=== PATIENT | male | born 1985 | race Hispanic/Latino ===

== ENCOUNTER 2017-03-14 05:36 | Observation (INO) | payer BC ==
[2017-03-14] MEDS ORDERED: Sodium Chloride 0.9% 1,000 ML IV STA (06:01)
[2017-03-14] MEDS ORDERED: Iohexol 240 (50 ml) PO ONE ×2 (06:07→07:07)
--- NOTE | 2017-03-14 06:17 | ED PDOC ---
HPI: Abdomen Time Seen by Provider: 03/14/17 06:00 Chief Complaint (Nursing): Abdominal Pain Chief Complaint (Provider): Abdominal Pain History Per: Patient History/Exam Limitations: no limitations Onset/Duration Of Symptoms: Hrs Outside of [place] travel?: No Current Symptoms Are (Timing): Constant Severity: Severe Pain Scale Rating Of: 10 Location Of Pain/Discomfort: LLQ Quality Of Discomfort: Sharp, Stabbing Associated Symptoms: Nausea, Vomiting. denies: Fever Exacerbating Factors: Supine Alleviating Factors: denies: Rest Additional Complaint(s): 31 y/o male patient presenting to the ED with acute abdominal pain. PT reports nausea, vomiting (multiple violent episodes), and that the pain worsened when sleep. Pt states the pain is radiating to his back. PT rates the pain a 10/10 and describes it as a "constant stabbing". PT denies any past medical history other then a shoulder repair surgery due to a traumatic injury. Past Medical History Reviewed: Historical Data, Nursing Documentation, Vital Signs Vital Signs: Last Vital Signs Temp 98.4 F 03/14/17 13:23 Pulse 72 03/14/17 13:23 Resp 18 03/14/17 13:23 BP 133/84 03/14/17 13:23 Pulse Ox 95 03/14/17 13:23 - Medical History PMH: No Chronic Diseases - Surgical History Other surgeries: Surgery for shoulder to repair traumatic injury. - Family History Family History: States: Unknown Family Hx - Social History Current smoker - smoking cessation education provided: No Alcohol: None Drugs: Denies - Home Medications Home Medications: Ambulatory Orders Medication Instructions Recorded Naproxen [Naprosyn] 500 mg PO BID PRN #14 tablet 03/14/17 oxyCODONE/Acetaminophen [Percocet 1 ea PO Q6 PRN #8 tab 03/14/17 5/325 mg Tab] - Allergies Allergies/Adverse Reactions: Allergies Allergy/AdvReac Type Severity Reaction Status Date / Time No Known Allergies Allergy Verified 03/14/17 05:42 Review of Systems ROS Statement: Except As Marked, All Systems Reviewed And Found Negative Cardiovascular: Negative for: Chest Pain Gastrointestinal: Positive for: Nausea, Vomiting ((+)Multiple Episodes), Abdominal Pain Physical Exam - Reviewed Nursing Documentation Reviewed: Yes Vital Signs Reviewed: Yes - Physical Exam Appears: Positive for: Non-toxic, Uncomfortable Skin: Positive for: Normal Color, Warm, Dry Neck: Positive for: Normal, Painless ROM, Supple Cardiovascular/Chest: Positive for: Regular Rate, Rhythm. Negative for: Murmur Respiratory: Positive for: Normal Breath Sounds. Negative for: Respiratory Distress Gastrointestinal/Abdominal: Positive for: Tenderness ((+)LLQ) Back: Positive for: Other ((+)Pain Radiating to the flank) Neurologic/Psych: Positive for: Alert, Oriented. Negative for: Motor/Sensory Deficits - Laboratory Results Result Diagrams: 03/14/17 06:14 03/14/17 06:14 - ECG O2 Sat by Pulse Oximetry: 97 (RA) Pulse Ox Interpretation: Normal Medical Decision Making Medical Decision Making: Time: 0600 Initial impression: Abdominal Pain, LLQ Tenderness. Initial plan: --ABD PELVIS --ELECTROCARDIOGRAM --CMP --LIPASE --ED URINE DIPSTICK --EKG-ED --CBC --FAMOTIDINE --IOHEXOL --KETOROLAC --SODIUM CHLORIDE --ONDANSETRON --HEPLOCK INSERTION --URINALYSIS 0700: Patient signed out to Dr. Bhatia at this time. Pending CT Scan. Scribe Attestation: Documented by Giovanna Trejo, acting as a scribe for Agustin Acosta MD. Scribe Attestation: All medical record entries made by the Scribe were at my direction and personally dictated by me. I have reviewed the chart and agree that the record accurately reflects my personal performance of the history, physical exam, medical decision making, and the department course for this patient. I have also personally directed, reviewed, and agree with the discharge instructions and disposition. ED OBSERVATION Date of observation admission: 03/14/17 Time of observation admission: 06:35 - Observation admission statement Patient is being placed in observation because:: Further workup of abdominal pain and pending CT. - Goals of Observation Goals of observation are:: Further workup of abdominal pain and pending CT. Disposition - Clinical Impression Clinical Impression: Renal colic - Disposition Disposition: Transfer of Care Disposition Time: 07:00 Condition: STABLE
[2017-03-14 06:21] LABS: BASO # 0.1 K/uL (0.0-0.2); BASO % 0.9 % (0.0-2.0); EOS # 0.1 K/uL (0.0-0.7); EOS % 0.9 % (0.0-4.0); HEMOGLOBIN 16.4 g/dL (12.0-18.0); LYMPH % 19.8 % (20.0-40.0); MEAN CELL VOLUME 88.3 fl (80.0-94.0); MEAN CORPUSCULAR HEMOGLOBIN 30.4 pg (27.0-31.0); MEAN CORPUSCULAR HGB CONC 34.4 g/dL (33.0-37.0); MEAN PLATELET VOLUME 7.3 fl (7.2-11.7); MONO # 0.6 K/uL (0.0-0.8); NEUT # 7.4 K/uL (1.8-7.0); NEUT % 72.4 % (50.0-75.0); NRBC % 0.1 % (0.0-0.0); RBC 5.39 Mil/uL (4.40-5.90); RED CELL DISTRIBUTION WIDTH 12.3 % (11.5-14.5); WHITE BLOOD COUNT 10.2 K/uL (4.8-10.8)
[2017-03-14 06:39] LABS: ALB/GLOB RATIO 1.5 (1.0-2.1); ALBUMIN 4.7 g/dL (3.5-5.0); ALT/SGPT 81 U/L (21-72); AST/SGOT 37 U/L (17-59); BLOOD UREA NITROGEN 17 mg/dl (9-20); CALCIUM 9.8 mg/dL (8.4-10.2); GFR AFRICAN-AMERICAN > 60; GFR NON-AFRICAN AMERICAN > 60; LIPASE 115 U/L (23-300)
[2017-03-14 07:40] VITALS: RESP 18
[2017-03-14 07:48] LABS: URINE BACTERIA RARE (<OCC); URINE BILIRUBIN NEGATIVE (NEGATIVE); URINE BLOOD SMALL (NEGATIVE); URINE CLARITY CLEAR (Clear); URINE COLOR YELLOW (YELLOW); URINE GLUCOSE (UA) NEG (Normal); URINE HYALINE CAST 0-2 /hpf (0-2); URINE LEUKOCYTE ESTERASE NEG Leu/uL (Negative); URINE NITRATE NEGATIVE (NEGATIVE); URINE PROTEIN NEGATIVE (NEGATIVE); URINE UROBILINOGEN 0.2-1.0 mg/dL (0.2-1.0)
--- NOTE | 2017-03-14 10:03 | CARD ---
APPROVED REPORT EKG Measurement Heart [id number] <Conclusion> Normal sinus rhythm Normal ECG
--- NOTE | 2017-03-14 10:58 | CT ---
PROCEDURE: CT abdomen pelvis dated 03/14/2017 HISTORY: LLQ and L flank pain COMPARISON: None. TECHNIQUE: Contiguous axial images of the abdomen and pelvis. Oral contrast was administered. No IV contrast given. Coronal and Sagittal reformats generated. Radiation dose: Total exam DLP = 1200.28 mGy-cm. This CT exam was performed using one or more of the following dose reduction techniques: Automated exposure control, adjustment of the mA and/or kV according to patient size, and/or use of iterative reconstruction technique. FINDINGS: LOWER THORAX: Mild atelectasis and or scarring changes in the left lung base. No infiltrate effusion or basilar pneumothorax. Tiny hiatal hernia with slight wall thickening of the distal esophagus likely due to protrusion of gastric mucosa. Possibility of esophagitis not completely excluded. Heart size normal. No significant pericardial effusion. LIVER: Liver is mildly enlarged measuring just over 19 cm in CC dimension. No obvious hepatic mass collection or calcification. Mild fatty hepatic infiltration. GALLBLADDER AND BILE DUCTS: Gallbladder is physiologically distended. No evidence of intraluminal gallbladder calculi. PANCREAS: The unenhanced pancreas appears slightly atrophic and fatty replaced. No evidence of pancreatic mass collection or calcification. SPLEEN: Spleen is enlarged measuring approximately 15.5 cm in AP dimension. No obvious splenic mass collection or calcification. Probable tiny splenule adjacent to the anterior inferior margin of the ADRENALS: No adrenal lesions. KIDNEYS AND URETERS: Kidneys exhibit symmetric size. There are some vague infiltration changes seen in the left perinephric fat. No renal calculi are identified. There is a tiny approximately 2 mm calcification in the left aspect of the pelvis is dorsal and adjacent to the left posterolateral margin of the urinary bladder. This could be a tiny calculus within the distal left ureter. Minimal prominence of a short segment of the mid to distal left ureter BLADDER: The liver is incompletely distended which may account for slight thick-walled appearance. Possibility of cystitis not excluded. REPRODUCTIVE: Prostate gland measures approximately 3.8 cm in transverse dimension. Few small prostatic calcifications are present. APPENDIX: Normal-appearing appendix of best seen on axial image number [id number]. No periappendiceal inflammatory changes. BOWEL: Evaluation of the bowel is limited due to incomplete opacification. The stomach is incompletely distended which may account for slight thick-walled appearance. Visualized loops of small bowel exhibit relatively normal contour and caliber. No evidence of acute mechanical small bowel obstruction. There is moderate amount of stool is seen within the cecum ascending and transverse colon suggesting mild fecal retention. No definitive evidence of mural wall thickening. PERITONEUM: Unremarkable. No fluid collection. No free air. LYMPH NODES: No significant bulky adenopathy lymph nodes. VASCULATURE: Unremarkable. No aortic aneurysm. BONES: Osseous structures appear grossly intact. Mild degenerative spondylosis L5-S1 level and to a much less so the remaining levels. OTHER FINDINGS: None. IMPRESSION: Tiny 2 mm calcification left aspect of the pelvis could be within the distal ureter. There is minimal prominence of of a short segment of the mid to distal left ureter. . Vague infiltration changes seen in the left perinephric fat. Correlation with urinalysis recommended. Mild hepatosplenomegaly. No evidence of acute appendicitis. Note that dense case was discussed with Dr. Bhatia at approximately 10:30 p.m. with written down and read back verification.
[2017-03-14] MEDS ORDERED: Oxycodone/Acetaminophen 5/325 mg Tab PO STA (11:16)
[2017-03-14] MEDS ORDERED: Oxycodone/Acetaminophen 5/325 mg Tab ONE (11:50)
--- NOTE | 2017-03-14 13:12 | ED PDOC ---
- Laboratory Results Result Diagrams: 03/14/17 06:14 03/14/17 06:14 - ECG O2 Sat by Pulse Oximetry: 95 Medical Decision Making Medical Decision Makin:00 Patient was signed out to be by Agustin Acosta MD pending CT, reevaluation and final disposition 09:00 Upon reevaluation, patient is continuing to have discomfort. More pain medication was ordered. 09:35 CT abd FINDINGS: LOWER THORAX: Mild atelectasis and or scarring changes in the left lung base. No infiltrate effusion or basilar pneumothorax. Tiny hiatal hernia with slight wall thickening of the distal esophagus likely due to protrusion of gastric mucosa. Possibility of esophagitis not completely excluded. Heart size normal. No significant pericardial effusion. LIVER: Liver is mildly enlarged measuring just over 19 cm in CC dimension. No obvious hepatic mass collection or calcification. Mild fatty hepatic infiltration. GALLBLADDER AND BILE DUCTS: Gallbladder is physiologically distended. No evidence of intraluminal gallbladder calculi. PANCREAS: The unenhanced pancreas appears slightly atrophic and fatty replaced. No evidence of pancreatic mass collection or calcification. SPLEEN: Spleen is enlarged measuring approximately 15.5 cm in AP dimension. No obvious splenic mass collection or calcification. Probable tiny splenule adjacent to the anterior inferior margin of the ADRENALS: No adrenal lesions. KIDNEYS AND URETERS: Kidneys exhibit symmetric size. There are some vague infiltration changes seen in the left perinephric fat. No renal calculi are identified. There is a tiny approximately 2 mm calcification in the left aspect of the pelvis is dorsal and adjacent to the left posterolateral margin of the urinary bladder. This could be a tiny calculus within the distal left ureter. Minimal prominence of a short segment of the mid to distal left ureter BLADDER: The liver is incompletely distended which may account for slight thick-walled appearance. Possibility of cystitis not excluded. REPRODUCTIVE: Prostate gland measures approximately 3.8 cm in transverse dimension. Few small prostatic calcifications are present. APPENDIX: Normal-appearing appendix of best seen on axial image number [id number]. No periappendiceal inflammatory changes. BOWEL: Evaluation of the bowel is limited due to incomplete opacification. The stomach is incompletely distended which may account for slight thick-walled appearance. Visualized loops of small bowel exhibit relatively normal contour and caliber. No evidence of acute mechanical small bowel obstruction. There is moderate amount of stool is seen within the cecum ascending and transverse colon suggesting mild fecal retention. No definitive evidence of mural wall thickening. PERITONEUM: Unremarkable. No fluid collection. No free air. LYMPH NODES: No significant bulky adenopathy lymph nodes. VASCULATURE: Unremarkable. No aortic aneurysm. BONES: Osseous structures appear grossly intact. Mild degenerative spondylosis L5-S1 level and to a much less so the remaining levels. OTHER FINDINGS: None. IMPRESSION: Tiny 2 mm calcification left aspect of the pelvis could be within the distal ureter. There is minimal prominence of of a short segment of the mid to distal left ureter. . Vague infiltration changes seen in the left perinephric fat. Correlation with urinalysis recommended. Mild hepatosplenomegaly. No evidence of acute appendicitis. Note that dense case was discussed with Dr. Bhatia at approximately 10:30 p.m. with written down and read back verification. 12:00 Upon reevaluation symptoms have began to improve 13:14 Symptoms have resolved and patient will be discharged with pain medication and a referral to urology. Patient was consulted on addictive qualities of narcotics. Scribe Attestation: Documented by Celestina Dwyer, acting as a scribe for Esteban Bhatia D.O. Provider Scribe Attestation: All medical record entries made by the Scribe were at my direction and personally dictated by me. I have reviewed the chart and agree that the record accurately reflects my personal performance of the history, physical exam, medical decision making, and the department course for this patient. I have also personally directed, reviewed, and agree with the discharge instructions and disposition. Disposition - Clinical Impression Clinical Impression: Renal colic - POA Present On Arrival: None - Disposition Disposition: Routine/Home Disposition Time: 12:30 Condition: STABLE
[2017-03-14 13:25] VITALS: BP 133/84; PULSE 72; TEMP 98.4
[2017-03-26 14:47] VITALS: O2SAT 95
== END 2017-03-14 13:15 | disposition home or self-care (01) ==
LOC: H.ER 05:36 → H.EROBSV 06:35
PROVIDERS: ADMIT Emergency Medicine; ATTEND Emergency Medicine
DX: N23 Unspecified renal colic (principal)
CPT/HCPCS: 74176; 80053; 81003; 83690; 85025; 93005; 96374; 96375; 99282; G0378; J1885; J2270; J2405; J7040; Q9966